=== PATIENT | female | born 1995 | race Two or more races ===

== ENCOUNTER 2024-12-19 20:39 | Emergency (ER) | payer MEDICAID ==
[~2024-12-19] VITALS: Ht 170.2 cm; Wt 108.9 kg
[2024-12-19 22:35] LABS: *BILIRUBIN,URIN NEGATIVE (NEGATIVE); *BLOOD, URINE 1+ (NEGATIVE); *CLARITY,URINE CLEAR (CLEAR); *COLOR,URINE YELLOW (YELLOW); *KETONES,URINE NEGATIVE (NEGATIVE); *PROTEIN,URINE 2+ (NEGATIVE); LEUKOCYTE ESTERASE ,URINE 1+ (NEGATIVE); NITRITE, URINE POSITIVE (NEGATIVE); PH,URINE 6.5 (5.0-8.0); UGLUCOSE NEGATIVE (NEGATIVE)
[2024-12-19 22:40] LABS: *URINE HCG, QUAL NEGATIVE (NEGATIVE)
[2024-12-19 22:54] LABS: BACTERIA,URINE MODERATE /HPF (NONE SEEN); SQUAMOUS EPITHELIAL CELL,UR FEW /HPF (NONE SEEN)
[2024-12-19 22:55] LABS: MUCUS,URINE MODERATE /LPF (0-FEW)
[2024-12-19] MEDS ORDERED: ONDA4TAB11 PO (23:11)
[2024-12-19] MEDS ORDERED: NAPR-1009 PO (23:11)
[2024-12-19] MEDS ORDERED: KETOROLAC TROMETHAMINE 30 MG INJ ONE (23:13)
[2024-12-19] MEDS ORDERED: PENICILLIN G BENZATHINE 2.4 MMU/4 ML DISP.SYRIN IM ONE (23:14)
[2024-12-19] MEDS ORDERED: NITR-104 PO (23:14)
[2024-12-19] MEDS: ONDANSETRON ODT 4 MG TAB.RAPDIS SL ONE (23:23)
[2024-12-19] MEDS: KETOROLAC TROMETHAMINE 30 MG INJ IM ONE (23:24)
[2024-12-19] MEDS: PENICILLIN G BENZATHINE 2.4 MMU/4 ML DISP.SYRIN IM ONE (23:24)
[2024-12-19 23:34] VITALS: BP 131/80; O2SAT 96
== END 2024-12-19 23:35 | disposition home or self-care (01) ==
LOC: ER 21:07
DX: J02.0 Streptococcal pharyngitis (principal); R51.9 Headache, unspecified; R50.9 Fever, unspecified; N39.0 Urinary tract infection, site not specified; R03.0 Elevated blood-pressure reading, without diagnosis of hypertension; R11.0 Nausea; R19.7 Diarrhea, unspecified; H93.13 Tinnitus, bilateral; Z20.822 Contact with and (suspected) exposure to COVID-19
CPT/HCPCS: 99284; 87426; 87804 ×2; 81001; 84703; 86403; 87186; 87086; 87077; 96372 ×2; J0561; J1885; A4606; A4663; Q0162